=== PATIENT | male | born 1965 ===

== ENCOUNTER 2024-07-20 13:19 | Outpatient (AMB) | payer OTHER, SELFPAY ==
[2024-07-20 13:40] VITALS: BP 122/80; PULSE 78; O2SAT 98
--- NOTE | 2024-07-20 13:40 | MHC.OFFWIV ---
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 While every effort has been made to ensure accuracy, women's swim coach errors may have been included. The patient is a 58 year old male who presents to the clinic today with right eye redness for the past couple of days. He notes over the past 2 weeks he has had some mild sinus congestion, mild sore throat. He denies fever, chills, cough, shortness of breath. He reports that the right eye has had some clear discharge, and when he wakes up in the morning he has clear colored stools forming on his eyelashes which he is able to wipe away. He denies any change in his vision, or any pain when he moves his eye. [facility] Social History Patient Tobacco Use Status: Never used Tobacco Review of Systems Const All systems reviewed & are unremarkable except as noted in HPI and below Physical Exam Vital Signs: Last Vital Signs Pulse 78 07/20/24 13:40 BP 122/80 07/20/24 13:40 Pulse Ox 98 07/20/24 13:40 Oxygen Delivery Method Room Air 07/20/24 13:40 Const General: cooperative, healthy appearing, comfortable, no acute distress and well developed Orientation/consciousness: patient oriented x3 Limitations: no limitations HEENT Head: Yes normal to inspection Ears: hearing grossly normal bilaterally General nose exam: Normal external nose present Face and sinus: Yes normal facial exam Eyes Alignment and Position: alignment normal Periorbital: periorbital findings normal Eyelids: Yes eyelids normal Conjunctivae: conjunctival abnormal right conjunctival injection and discharge (clear) Neck Neck: Yes normal visual inspection and Yes full ROM Resp Effort & Inspection: normal respiratory effort and able to speak in complete sentences Auscultation: clear to auscultation bilaterally Cardio Rate: regular rate Rhythm: regular rhythm Heart sounds: normal S1 and S2 Skin General skin exam: no rashes or lesions noted Neuro General: patient oriented x3 Assessment & Plan Assessment & Plan (1) Viral conjunctivitis of right eye: Code(s): B30.9 - Viral conjunctivitis, unspecified Plan: Supportive measures encouraged and reviewed. Advised patient that based on this being a viral infection, antibiotic would be inappropriate at this time. Advised patient to have re-evaluation should she have any changes in his vision, or any changes in symptoms. Advised follow up as needed with worsening or failure to resolve. Plan See above for full details and plan. Coding Level of Care Code Est Pt Level 3 (28014) Diagnoses Viral conjunctivitis of right eye B30.9
== END 2024-07-20 14:18 | disposition home or self-care (01) ==
PROVIDERS: Visit Provider Registered Nurse
DX: B30.9 Viral conjunctivitis, unspecified (principal)

== ENCOUNTER → 2024-07-20 13:19 | Outpatient (BNVA) | payer OTHER, SELFPAY | PROVIDERS: Visit Provider Physician Assistant ==